=== PATIENT | female | born 1940 | race Caucasian/White ===

== ENCOUNTER 2021-04-30 14:43 | Emergency (ER) | payer MEDICARE ==
[~2021-04-30] VITALS: Ht 170.2 cm; Wt 47.6 kg
[2021-04-30 15:17] LABS: APPEARANCE,URINE Cloudy (CLEAR); BILIRUBIN,URINE Negative (NEGATIVE); COLOR,URINE Yellow (YELLOW); GLUCOSE, URINE (UA) Negative (NEGATIVE); KETONES,URINE Negative (NEGATIVE); LEUKOCYTE ESTERASE ,URINE Moderate (NEGATIVE); NITRATE,URINE Positive (NEGATIVE); OCCULT BLOOD,URINE Negative (NEGATIVE); PROTEIN,URINE Negative (NEGATIVE); UROBILINOGEN,URINE 0.2 mg/dL (0.2-1.0)
[2021-04-30 15:22] LABS: BACTERIA,URINE Moderate /HPF (None Seen); RBC,URINE 0-1 /HPF (0-1)
[2021-04-30 15:23] LABS: SQUAMOUS EPITHELIAL CELL,UR Few /HPF (0-2); TRANSITIONAL EPI CELLS,URINE Few /HPF (None Seen)
[2021-04-30 15:49] LABS: CREATININE 0.9 mg/dL (0.5-1.5); POTASSIUM 3.4 mmol/L (3.5-5.1)
[2021-04-30 15:54] LABS: ALBUMIN 4.1 g/dL (3.5-5.0); BILIRUBIN,TOTAL 0.7 mg/dL (0.2-1.0); TOTAL PROTEIN, SERUM 7.5 g/dL (6.0-8.3)
[2021-04-30 16:05] LABS: HEMATOCRIT 47.1 % (36-48); MEAN CORPUSCULAR HEMOGLOBIN 29.4 pg (27.0-33.0); MEAN CORPUSCULAR HGB CONC 33.8 g/dL (32.0-36.0); MEAN CORPUSCULAR VOLUME 87.1 fL (79-99); PLATELET COUNT (AUTO) 408 K/uL (130-400); RED BLOOD CELL COUNT(AUTO) 5.41 MIL/uL (4.00-5.50); WHITE BLOOD COUNT (AUTO) 15.3 K/uL (4.8-10.8)
[2021-04-30] MEDS ORDERED: 0.9%NACL 1000ML 1,000 ML IV ONE (16:30)
[2021-04-30 17:37] LABS: BAND NEUTROPHILS % (MANUAL) 2 % (0-2); LYMPHOCYTES % (MANUAL) 6 % (22-44); MAN.DIFF COMMENT-IMPRESSION MANUAL DIFFERENTIAL; MONOCYTES % (MANUAL) 7 % (2-9); REACTIVE LYMPHOCYTES 6 % (0-0); SEGMENTED NEUTROPHILS % 79 % (40-70)
[2021-04-30 17:39] LABS: PLATELET MORPHOLOGY COMMENT LARGE PLTS PRESENT
[2021-04-30 18:41] LABS: APPEARANCE,URINE Cloudy (CLEAR); BILIRUBIN,URINE Negative (NEGATIVE); COLOR,URINE Yellow (YELLOW); GLUCOSE, URINE (UA) Negative (NEGATIVE); KETONES,URINE Trace mg/dL (NEGATIVE); LEUKOCYTE ESTERASE ,URINE Small (NEGATIVE); NITRATE,URINE Positive (NEGATIVE); OCCULT BLOOD,URINE Negative (NEGATIVE); PROTEIN,URINE Negative (NEGATIVE); UROBILINOGEN,URINE 0.2 mg/dL (0.2-1.0)
[2021-04-30 18:56] LABS: RBC,URINE 0-1 /HPF (0-1)
[2021-04-30 18:57] LABS: BACTERIA,URINE Moderate /HPF (None Seen); SQUAMOUS EPITHELIAL CELL,UR Few /HPF (0-2)
[2021-04-30 18:58] LABS: TRANSITIONAL EPI CELLS,URINE Rare /HPF (None Seen)
[2021-04-30 18:59] LABS: MUCUS,URINE Rare LPF (None Seen)
[2021-04-30] MEDS ORDERED: CIPR-278 PO (19:50)
[2021-04-30 19:57] VITALS: BP 150/81
== END 2021-04-30 19:59 | disposition home or self-care (01) ==
LOC: EDH 14:43
DX: R19.7 Diarrhea, unspecified (principal); R05.9 Cough, unspecified; R53.1 Weakness; R09.81 Nasal congestion; I10 Essential (primary) hypertension; Z20.822 Contact with and (suspected) exposure to COVID-19
CPT/HCPCS: 36415; 80053; 81001 ×2; 85025; 87077; 87088; 87186; 87635; 87804 ×2; 93005; 96360; 99284; C9803; J7030

== ENCOUNTER 2021-05-31 11:47 | Emergency (ER) | payer MEDICARE ==
[~2021-05-31] VITALS: Ht 170.2 cm; Wt 49.9 kg
[2021-05-31 11:47] VITALS: BP 136/93
[~2021-05-31 11:47] MED LIST: CIPR-278 PO
[2021-05-31 12:45] LABS: BASOPHILS % (AUTO) 0.1 % (0.0-5.0); HEMATOCRIT 41.8 % (36-48); LYMPHOCYTES % (AUTO) 17.3 % (21.0-51.0); MEAN CORPUSCULAR HEMOGLOBIN 29.5 pg (27.0-33.0); MEAN CORPUSCULAR HGB CONC 34.2 g/dL (32.0-36.0); MEAN CORPUSCULAR VOLUME 86.4 fL (79-99); PLATELET COUNT (AUTO) 284 K/uL (130-400); RED BLOOD CELL COUNT(AUTO) 4.84 MIL/uL (4.00-5.50); RED CELL DISTRIBUTION WIDTH 12.2 % (11.0-15.5); WHITE BLOOD COUNT (AUTO) 9.1 K/uL (4.8-10.8)
[2021-05-31 13:08] LABS: CREATININE 0.7 mg/dL (0.5-1.5); POTASSIUM 3.4 mmol/L (3.5-5.1)
[2021-05-31 13:12] LABS: ALBUMIN 3.4 g/dL (3.5-5.0); BILIRUBIN,TOTAL 0.6 mg/dL (0.2-1.0); TOTAL PROTEIN, SERUM 6.9 g/dL (6.0-8.3)
[2021-05-31 13:34] LABS: B-TYPE NATRIURETIC PEPTIDE 44 pg/mL (0-100)
[2021-05-31] MEDS ORDERED: ALBU18HF7 IH (13:43)
[2021-05-31] MEDS ORDERED: DOXY100V2 IV (13:43)
[2021-05-31] MEDS ORDERED: PRED5TAB PO (13:43)
== END 2021-05-31 13:57 | disposition home or self-care (01) ==
LOC: EDH 11:47
DX: J18.9 Pneumonia, unspecified organism (principal); I10 Essential (primary) hypertension; E78.00 Pure hypercholesterolemia, unspecified; Z90.49 Acquired absence of other specified parts of digestive tract; Z98.890 Other specified postprocedural states; Z20.822 Contact with and (suspected) exposure to COVID-19
CPT/HCPCS: 36415; 71045; 80053; 83880; 85025; 87635; 87804 ×2; 99284; C9803